=== PATIENT | female | born 1950 | race Caucasian/White ===

== ENCOUNTER 2017-09-12 07:44 | Day surgery (SDC) | payer MEDICAID ==
[~2017-09-12 07:44] MED LIST: LR 1,000 ML IV ONE; LR 1,000 ML IV SCH; ceFAZolin 2 GM/DEXTROSE 100 ML IV ONE; ceFAZolin 2 GM/SWFI 2 GM/20 ML SYR IVP ONE
[2017-09-12] MEDS ORDERED: LR 1,000 ML IV ONE (08:18)
[2017-09-12] MEDS ORDERED: LIDOCAINE 1% 2 ML INJ ID PRN (08:18)
[2017-09-12] MEDS ORDERED: MIDAZOLAM 2 MG/2 ML VIAL IVP ONE (09:08)
--- NOTE | 2017-09-12 09:10 | PDANEPAE ---
ANE History of Present Illness Patient presents for R foot surgery ANE Past Medical History - Cardiovascular History Hx Hypertension: No Hx Arrhythmias: No Hx Chest Pain: No Hx Coronary Artery / Peripheral Vascular Disease: No Hx CHF / Valvular Disease: No Hx Palpitations: No - Pulmonary History Hx COPD: No Hx Asthma/Reactive Airway Disease: No Hx Recent Upper Respiratory Infection: No Hx Oxygen in Use at Home: No Hx Sleep Apnea: No Sleep Apnea Screening Result - Last Documented: Negative - Neurologic History Hx Cerebrovascular Accident: No Hx Seizures: No Hx Dementia: No Neurologic History Comment: hx of cervical spine surgery - Endocrine History Hx Diabetes: No - Renal History Hx Renal Disorders: No - Liver History Hx Hepatic Disorders: No - Neurological & Psychiatric Hx Hx Neurological and Psychiatric Disorders: No - Cancer History Hx Cancer: No - Congenital Disorder History Hx Congenital Disorders: No - GI History Hx Gastrointestinal Disorders: Yes Gastrointestinal History Comment: occ reflux - Other Health History Other Health History: wears reading glasses - Chronic Pain History Chronic Pain: Yes (right foot) - Surgical History Prior Surgeries: left hand surgery- bone spur on thumb removed 2016. foot surgeries x 3. jaw surgery for tmj. sinus surgery. breast augmentation. cervical spine surgery ANE Review of Systems Review of Systems: - Exercise capacity METS (RN): 4 METS ANE Patient History - Allergies Allergies/Adverse Reactions: corn Allergy (Verified 02/22/15 17:22) gluten Allergy (Verified 08/30/17 13:58) Milk Containing Products [dairy] Allergy (Verified 08/30/17 13:58) soy Allergy (Verified 02/22/15 17:22) Sulfa (Sulfonamide Antibiotics) Allergy (Verified 08/30/17 13:58) Rash wheat Allergy (Verified 02/22/15 17:23) - Home Medications Home medications: home medication list seen and reviewed Home Medications: Allergy Shots 08/30/17 [Last Taken 09/11/17] Azelastine 08/30/17 [Last Taken 09/11/17] Budesonide 08/30/17 [Last Taken 09/11/17] Flonase Nasal [place] 08/30/17 [Last Taken 08/29/17] Montelukast Sodium 08/30/17 [Last Taken Unknown] Omeprazole PRN 08/30/17 [Last Taken 09/09/17] - NPO status NPO Status: no food or drink >8 hours NPO Since - Liquids (Date): 09/12/17 NPO Since - Liquids (Time): 05:30 NPO Since - Solids (Date): 09/11/17 NPO Since - Solids (Time): 23:00 - Anes Hx Anes Hx: no prior problems - Smoking Hx Smoking Status: Never smoked - Family Anes Hx Family Hx Anesthesia Complications: none ANE Labs/Vital Signs - Vital Signs Blood Pressure: 130/69 Heart Rate: 70 Respiratory Rate: 16 O2 Sat (%): 100 Height: 165.1 cm Weight: 53.07 kg ANE Physical Exam - Airway Neck exam: FROM, decreased ROM Mallampati Score: Class 2 Mouth exam: normal dental/mouth exam - Pulmonary Pulmonary: no respiratory distress - Cardiovascular Cardiovascular: regular rate and rhythym - ASA Status ASA Status: II ANE Anesthesia Plan Anesthesia Plan: GA w LMA (RBA discussed)
[2017-09-12] MEDS ORDERED: BUPIVACAINE 0.5% 30 ML SDV ONE (09:11)
[2017-09-12] MEDS ORDERED: ceFAZolin 1 GM/5 ML SYR ONE (09:12)
[2017-09-12] MEDS ORDERED: LIDOCAINE 2% 5 ML SDV ONE ×2 (09:13→09:22)
[2017-09-12] MEDS ORDERED: fentaNYL 100 MCG/2 ML INJ ONE ×2 (09:18→11:57)
[2017-09-12] MEDS ORDERED: PROPOFOL/EMULSION 500 MG/50 ML BOTTLE IV ONE (09:19)
[2017-09-12] MEDS ORDERED: DEXAMETHASONE 4 MG/ML VIAL ONE (09:49)
[2017-09-12] MEDS ORDERED: ONDANSETRON 4 MG/2 ML VIAL ONE (09:49)
[2017-09-12] MEDS ORDERED: NALOXONE HCL 0.4 MG/ML INJ IVP PRN (10:43)
[2017-09-12] MEDS ORDERED: ONDANSETRON 4 MG/2 ML VIAL IVP PRN (10:43)
[2017-09-12] MEDS ORDERED: fentaNYL 100 MCG/2 ML INJ IVP PRN (10:43)
[2017-09-12] MEDS ORDERED: HYDROCODONE/APAP 5/325 TAB PO PRN (10:43)
[2017-09-12] MEDS ORDERED: epHEDrine SULFATE 10 MG/ML SYR ONE (10:49)
[2017-09-12] MEDS ORDERED: PHENYLEPHRINE HCL 100 MCG/ML SYR ONE ×2 (10:56)
[2017-09-12] MEDS ORDERED: MEPERIDINE 25 MG/ML SYR IVP ONE (11:34)
--- NOTE | 2017-09-12 11:34 | POSTANESTH ---
Post Anesthetic Evaluation Cardiovascular Status: Normal, Stable Respiratory Status: Normal, Stable Level of Consciousness/Mental Status: Can Participate in Eval Pain Control: Adequate, Prn Tx Ordered Nausea/Vomiting Control: Adequate, Prn Tx Ordered Complications Possibly Related to Anesthesia: None Noted
[2017-09-12 11:43] VITALS: PULSE 66
[2017-09-12] MEDS ORDERED: OXYCODONE/APAP 5/325 TAB ONE ×2 (11:47→11:58)
[2017-09-12] MEDS: OXYCODONE/APAP 5/325 TAB PO PRN ×2 (11:48→12:00)
[2017-09-12 13:39] VITALS: RESP 18; TEMP 97.5; O2SAT 96
[2017-09-12 13:54] VITALS: BP 114/67
--- NOTE | 2017-09-14 04:35 | GOP ---
[f rep st] OPERATIVE REPORT DATE OF OPERATION: 09/12/2017 SURGEON: Ricky Elliott DPM PIECE DYER: None. ANESTHESIA: Was local with monitored anesthesia care. PREOPERATIVE DIAGNOSIS: 1. Right foot hallux valgus. 2. Metatarsalgia, right forefoot. POSTOPERATIVE DIAGNOSIS: 1. Right foot hallux valgus. 2. Metatarsalgia, right forefoot. PROCEDURE PERFORMED: 1. First metatarsophalangeal joint arthrodesis. 2. Dong metatarsal head resection, right foot. FINDINGS: SPECIMENS: None. ESTIMATED BLOOD LOSS: Scant. INDICATIONS: The patient presented to my office with a preexisting resected 2nd metatarsal head with a bunionectomy of the right forefoot. The patient has had multiple transfer metatarsalgia issues in cluding stress fractures of the 3rd and 4th metatarsals respectively. The patient has tried multiple different shoe types as well as orthotics to relieve her forefoot symp toms. The patient was given the option of 1st metatarsophalangeal joint fusion as well as a metatars al head resection to relieve both of her current issues. The patient understands the risks, benefits , and alternatives to the procedures presented and wishes to proceed. DESCRIPTION OF PROCEDURE: Under mild sedation, the patient was brought to the operating room, placed on the operating table in supine position. Following further IV sedation, 30 cc of 0.5% Marcaine pl ain was infiltrated about the patient's right forefoot. The foot was then scrubbed, prepped, and chani ped in the usual aseptic manner. A sterile pneumatic tourniquet was then placed about the patient's well-padded supramalleolar area. An Esmarch bandage was used utilized to exsanguinate the patient's right foot and the tourniquet was inflated to 250 mmHg. Attention was then directed to the area overlying the 1st metatarsophalangeal joint where an already present cicatrix was located. It is this cicatrix was ellipsed out and passed from the operative fie ld. The incision was deepened via sharp and blunt dissection care being taken to identify and retrac t all vital neural and vascular structures. All bleeders were ligated and cauterized as necessary. Periosteum capsular incision was made in line with the skin incision. These structures were reflecte d medially and laterally thus exposing the head of the 1st metatarsal. A modified Moralez bunionecto my was then performed revising the lateral release and taking off the medial eminence of the 1st meta tarsal head. At this time, the articular surfaces of the 1st metatarsophalangeal joint were then com pletely denuded of cartilage using cup and cone type reamers for the head of the 1st metatarsal and t he base of the proximal phalanx of the right hallux. Next, the subchondral bone was then perforated with a K-wire. This was done to increase the amount of surface area at the fusion site. At this danica e, temporary fixation was then placed across the fusion site of the 1st metatarsophalangeal joint and position of the fusion was checked under intraoperative fluoroscopy. Care was taken to keep the pos ition of the right hallux at 5 degrees of lateral deviation and 5-10 degrees of dorsiflexion at the 1 st metatarsophalangeal joint. At this time, following standard AO principles and techniques. A comp ression screw measuring 3.0 x 36 mm was directed from proximal medial to distal lateral. Upon valida tion of the screw, compression was noted to be excellent across the fusion site. At this time, a sadie page plate was then placed over the fusion site. A combination of cortical and locking screws were pl aced in the dorsal plantar direction. Final intraoperative fluoroscopic pictures were taken. ____ The wound was closed in layers with a 2-0 Vicryl. The subcutaneous tissues were reapproximated and coapted utilizing a 3-0 Monocryl. The skin was reapproximated and coapted utilizing a 4-0 Prolen e in a running baseball-type suture. Attention was then directed to the area overlying the 2nd intermetatarsal space of the right foot whe re a linear longitudinal incision was made in line with the longitudinal axis of the 2nd and 3rd meta tarsals. This incision was deepened via sharp and blunt dissection care being taken to identify and retract all vital neural and vascular structures. All bleeders were ligated and cauterized as necess ash. Capsular incisions were made overlying the 2nd and 3rd metatarsal heads. This tissue was refle cted medially and laterally thus exposing the heads of the 2nd and 3rd metatarsals. Next, utilizing a sagittal saw, the heads of the 2nd and 3rd metatarsals were resected and passed from the operative field. The wound was flushed with copious amounts of sterile normal saline. Capsular tissues were r eapproximated and coapted utilizing 2-0 Vicryl. Subcutaneous tissues were then reapproximated and co apted utilizing a 3-0 Monocryl. The skin was closed with an interrupted horizontal mattress of 4-0 P rolene. Attention was then directed to the dorsal lateral aspect overlying the 5th metatarsophalangeal joint where a 2 cm linear longitudinal incision was made overlying the head of the 5th metatarsal. The inc ision was deepened via sharp and blunt dissection care being taken to identify and retract all vital neural and vascular structures, and all bleeders were ligated and cauterized as necessary. Periostea l incision was made overlying the head of the 5th metatarsal. The soft tissue structures were reflec cinda medial and laterally thus exposing the head of the 5th metatarsal. A sagittal saw was then used to excise the head of the 5th metatarsal. The saw was directed in a direction from dorsal distal to plantar proximal in a beveled type fashion for appropriate weightbearing. It should be noted that th is same saw technique was used for the 2nd and 3rd metatarsals. Wound over the 5th metatarsal was fl ushed with copious amounts of sterile normal saline. The wound was closed in layers with 2-0 Vicryl and 3-0 Monocryl, and the skin was closed with 4-0 Prolene. The patient tolerated the procedure and anesthesia well. The wound was then dressed with Xeroform and a sterile compressive dressing consist ing of 4 x 4's and Medardo. A posterior splint was then applied with the ankle at 90 degrees to assist with both positioning of the foot while healing, as well as postoperative edema. The tourniquet was dropped and a prompt hyperemic response was noted to all digits of the right foot. Following a dylan od of postoperative monitoring, the patient is to be discharged home with all written and oral postop erative instructions. 1. Keep dressing clean, dry, and intact. 2. Ice and elevate as instructed. 3. Nonweightbearing at all times for the first 2 weeks with crutches and/or knee scooter. All Followup questions and concerns can be directed toward [facility] at [phone]. HEMOSTASIS: Pneumatic ankle tourniquet about the right ankle at 250 mmHg x88 minutes. MATERIALS: A 1st metatarsophalangeal joint plate short for the right side x1. A 3.0 x 36 mm tripp sherry screw, 3.0 x 18 mm compression screw, 3.0 x 10 mm variable locking screw, 3.0 x 12 mm variable l ocking screw, and two 3.0 x 16 mm locking screws. INJECTABLES: 30 cc of 0.5% Marcaine plain. COMPLICATIONS: None. /[id number]/MODL
== END 2017-09-12 13:39 | disposition home or self-care (01) ==
LOC: FSGY 07:44
PROVIDERS: ATTEND Podiatrist Foot & Ankle Surgery
PROC: 0SSM04Z Reposition Right Metatarsal-Phalangeal Joint with Internal Fixation Device, Open Approach (ICD-10-PCS; principal; 2017-09-12 09:00)
PROC: 0QBN0ZZ Excision of Right Metatarsal, Open Approach (ICD-10-PCS; principal; 2017-09-12 09:00)
DX: M20.11 Hallux valgus (acquired), right foot (principal); M77.41 Metatarsalgia, right foot
CPT/HCPCS: 28110; 28292; C1769; C1713; J1100; J2250; J2370; J2405; J2704; J3010

== ENCOUNTER → 2017-10-03 | Outpatient (CLI) | payer MEDICAID | LOC: BMCIMAGING 13:02 | PROVIDERS: ATTEND Podiatrist Foot & Ankle Surgery | DX: Z09 Encounter for follow-up examination after completed treatment for conditions other than malignant neoplasm (principal); Z98.890 Other specified postprocedural states ==

== ENCOUNTER 2017-10-13 13:20 | Emergency (ER) | payer MEDICAID ==
[2017-10-13 13:30] VITALS: TEMP 97.9
--- NOTE | 2017-10-13 14:26 | EDPHY ---
H & P Stated Complaint: r bunionectomy 1 month ago/may have infection Time Seen by Provider: 10/13/17 14:26 - Personal History Current Tetanus/Diphtheria Vaccine: Yes - Medical/Surgical History Hx Asthma: No Hx Chronic Respiratory Disease: No Hx Diabetes: No Hx Cardiac Disease: No Hx Renal Disease: Yes Hx Cirrhosis: No Hx Alcoholism: No Hx HIV/AIDS: No Hx Splenectomy or Spleen Trauma: No Other PMH: kidney infxn - Social History Smoking Status: Never smoked Constitutional: Initial Vital Signs Temperature (C) 36.6 C 10/13/17 13:28 Heart Rate 85 10/13/17 13:28 Respiratory Rate 18 10/13/17 13:28 Blood Pressure 127/84 H 10/13/17 13:28 O2 Sat (%) 96 10/13/17 13:28 O2 Delivery Mode Room Air Allergies/Adverse Reactions: corn Allergy (Verified 10/13/17 13:27) gluten Allergy (Verified 10/13/17 13:27) Milk Containing Products [dairy] Allergy (Verified 10/13/17 13:27) soy Allergy (Verified 10/13/17 13:27) Sulfa (Sulfonamide Antibiotics) Allergy (Verified 10/13/17 13:27) Rash wheat Allergy (Verified 10/13/17 13:27) Home Medications: Medication Instructions Recorded Allergy Shots 08/30/17 Azelastine 08/30/17 Budesonide 08/30/17 Flonase Nasal [place] 08/30/17 Montelukast Sodium 08/30/17 Omeprazole PRN 08/30/17 Augmentin 875 MG TAB (*) 10/13/17 Doxycycline Hyclate 100 mg PO BID #20 tab 10/13/17 traMADol 10/13/17 Medical Decision Making ED Course/Re-evaluation: CHIEF COMPLAINT: Foot infection HISTORY OF PRESENT ILLNESS: 66-year-old female who is a few weeks out from a left bunionectomy and arthritic foot which required hardware placement by Dr. Elliott. She has been doing quite well but last night noticed that the toe looked a little bit red and had a slight smell to it. She had been sealing the toe with an occlusive dressing had not taken the dressing off for couple of days. She took a shower and called her on-call allergist immunologist. They a prescribed Augmentin and a topical antibacterial. By this morning the foot actually improved considerably. There is very minimal to no cellulitis the patient is not having any pain or any systemic symptoms. They came here for further evaluation since the allergist immunologist was unable to see them on Thanksgiving. REVIEW OF SYSTEMS: A 10 point review of systems was performed and is negative with the exception of the elements mentioned in the history of present illness. PHYSICAL EXAM: HR, BP, O2 Sat, RR. Temp noted General Appearance: Alert, well hydrated, appropriate, and non-toxic appearing. Head: Atraumatic without scalp tenderness or obvious injury Eyes: Pupils equal, round, reactive to light and accommodation, EOMI, no trauma , no injection. Ears: Clear bilaterally, no perforation, normal landmarks Nose: Atraumatic, no rhinorrhea, clear. Throat: There is no erythema or exudates, no lesions, normal tonsils, mucus membranes moist. Neck: Supple, 2+ carotid upstroke, nontender, no lymphadenopathy. Respiratory: No retractions, no distress, no wheezes, and no accessory muscle use. Lungs are clear to auscultation bilaterally. Cardiovascular: Regular rate and rhythm, no murmurs, rubs, or gallops. Bilateral carotid, radial, dorsalis pedis, and posterior tibial pulses intact. Good capillary refill all extremities. Gastrointestinal: Abdomen is soft, nontender, non-distended, no masses, no rebound, no guarding, no peritoneal signs. Musculoskeletal: Normal active ROM of all extremities, atraumatic. Neurological: Alert, appropriate, and interactive. The patient has normal DTRs and non-focal cranial nerves, motor, sensory, and cerebellar exam. Skin: Wound that is clean dry and intact with a little bit of eschar on the dorsal aspect of the left great toe. Very minimal to no erythema. No discharge. No rashes, good turgor, no nodules on palpation. Past medical history: Foot arthritis Past surgical history: Foot surgery Family history: Noncontributory Social history: , lives in [place], does not abuse tobacco drugs or alcohol, retired DIFFERENTIAL DIAGNOSIS: Includes but is not limited to cellulitis, non healing wound, osteomyelitis, trauma MEDICAL DECISION MAKING: This patient probably had some minimal cellulitis and discharged from this open granulating wound on the dorsal aspect of her left toe because she had an occlusive dressing on for several days. The dressing came off last night and she started 1 dose of Augmentin by this morning the toe looked a lot better. On my examination there is very minimal to no cellulitis. Additionally, there is no significant discharge there is a little bit of eschar in the wound but it is granulating well and it is clean dry and intact. I added doxycycline to her Augmentin to cover staph. She has an appointment with her allergist immunologist on Tuesday. The concern is that she does have hardware in the toes so I wanted treated as conservatively as possible with oral antibiotics even though there is no significance of any major infectious source. Patient is comfortable with plan and will follow up on Tuesday. Departure - Departure Disposition: Home, Routine, Self-Care Clinical Impression: Cellulitis Qualifiers: Site of cellulitis: extremity Site of cellulitis of extremity: lower extremity Laterality: left Qualified Code(s): L03.116 - Cellulitis of left lower limb Arthritis of foot, degenerative Qualifiers: Osteoarthritis type: primary Laterality: left Qualified Code(s): M19.072 - Primary osteoarthritis, left ankle and foot Condition: Good Instructions: Cellulitis (ED) Referrals: NONE *PRIMARY CARE P,. [Primary Care Provider] - As per Instructions Prescriptions: Doxycycline Hyclate 100 mg PO BID #20 tab
[2017-10-13] MEDS ORDERED: DOXYCYCLINE 100 MG PREPACK#2 BTL TAKEHOME ONE (14:36)
[2017-10-13] MEDS ORDERED: DOXYCYCLINE HYCLATE 100 MG CAP/TAB PO ONE (14:36)
[2017-10-13 14:57] VITALS: BP 116/66; PULSE 68; RESP 12; O2SAT 98
== END 2017-10-13 14:57 | disposition home or self-care (01) ==
DX: L03.116 Cellulitis of left lower limb (principal); M19.072 Primary osteoarthritis, left ankle and foot

== ENCOUNTER → 2017-10-31 | Outpatient (CLI) | payer MEDICAID | LOC: BMCIMAGING 12:57 | PROVIDERS: ATTEND Podiatrist Foot & Ankle Surgery | DX: Z09 Encounter for follow-up examination after completed treatment for conditions other than malignant neoplasm (principal); Z98.890 Other specified postprocedural states ==

== ENCOUNTER → 2018-04-27 | Outpatient (CLI) | payer OTHER, MEDICAID | LOC: FIMAGING 12:27 | PROVIDERS: ATTEND Physician Assistant Medical | DX: Z12.31 Encounter for screening mammogram for malignant neoplasm of breast (principal) ==